=== PATIENT | female | born 1960 ===

== ENCOUNTER → 2025-01-31 08:37 | Outpatient (BNVA) | payer MEDICARE, SELFPAY | PROVIDERS: PCP Internal Medicine; Referring Provider Internal Medicine; Visit Provider Nurse Practitioner Gerontology | DX: R31.29 Other microscopic hematuria (principal); N95.2 Postmenopausal atrophic vaginitis; E11.59 Type 2 diabetes mellitus with other circulatory complications; I10 Essential (primary) hypertension | CPT/HCPCS: 99204; 81002 ==

== ENCOUNTER 2025-01-31 15:47 | Outpatient (REF) | payer MEDICARE, SELFPAY ==
[2025-01-31 13:54] LABS: Glucose Negative (Negative)
[2025-01-31 14:06] LABS: C & S Indicated? No; RBC 0-2 HPF (0-2); WBC Negative HPF (0-5)
== END 2025-01-31 15:48 | disposition home or self-care (01) ==
LOC: LBN 15:47
PROVIDERS: PCP Internal Medicine; Visit Provider Nurse Practitioner Gerontology
DX: R31.9 Hematuria, unspecified (principal)
CPT/HCPCS: 81003; 81015

== ENCOUNTER → 2025-06-01 08:44 | Outpatient (BNVA) | payer MEDICARE, SELFPAY | PROVIDERS: PCP Internal Medicine; Referring Provider Internal Medicine; Visit Provider Nurse Practitioner Gerontology | DX: R31.29 Other microscopic hematuria (principal); N95.2 Postmenopausal atrophic vaginitis | CPT/HCPCS: 99213 ==